=== PATIENT | male | born 1970 | race Caucasian/White ===

== ENCOUNTER 2021-10-05 11:27 | Emergency (ER) | payer SELFPAY ==
[2021-10-05] MEDS ORDERED: Sodium Chloride 0.9% 10 ML Syringe FLUSH PRN ×2 (12:03→12:05)
[2021-10-05] MEDS ORDERED: Iopamidol 612 MG/ML 100 ML Bottle IVPUSH ONE (12:05)
== END 2021-10-05 13:50 | disposition home or self-care (01) ==
LOC: JD.ED 11:27
DX: K57.32 Diverticulitis of large intestine without perforation or abscess without bleeding (principal)
CPT/HCPCS: 36415; 74177; 80053; 83690; 85025; 86140; 99284; J3490; Q9967

== ENCOUNTER 2022-12-31 18:43 | Emergency (ER) | payer BC ==
[2022-12-31 19:21] LABS: BASOPHILS ABSOLUTE AUTO 0.02 K/mm3 (0.01-0.08); BASOPHILS PERCENT AUTO 0.1 % (0.1-1.2); EOSINOPHILS ABSOLUTE AUTO 0.11 K/mm3 (0.04-0.54); EOSINOPHILS PERCENT AUTO 0.7 (0.8-7.0); HEMATOCRIT 46.4 % (40.1-51.0); HEMOGLOBIN 16.5 gm/dl (13.7-17.5); IMMATURE GRAN ABSOLUTE AUTO 0.06 K/mm3 (0.00-0.10); IMMATURE GRAN PERCENT AUTO 0.4 % (<=1.0); LYMPHOCYTES ABSOLUTE AUTO 2.37 K/mm3 (1.32-3.57); LYMPHOCYTES PERCENT AUTO 14.5 % (21.8-53.1); MEAN CORPUSCULAR HEMOGLOBIN 34.5 pg (25.7-32.2); MEAN CORPUSCULAR HGB CONC 35.6 g/dl (32.2-35.5); MEAN PLATELET VOLUME 9.2 fl (9.4-12.3); MONOCYTES ABSOLUTE AUTO 2.06 K/mm3 (0.30-0.82); MONOCYTES PERCENT AUTO 12.6 % (5.3-12.2); NEUTROPHILS ABSOLUTE AUTO 11.68 K/mm3 (1.78-5.38); NEUTROPHILS PERCENT AUTO 71.7 % (34.0-67.9); PLATELET COUNT,PLT 348 K/mm3 (163-337); RED BLOOD CELL COUNT 4.78 M/mm3 (4.63-6.08)
[2022-12-31 19:25] LABS: MEAN CORPUSCULAR VOLUME 97.1 fl (79.0-92.2)
[2022-12-31 19:34] LABS: BASE EXCESS ARTERIAL -1.3 (-2-2.0); BICARBONATE,ARTERIAL 21.4 meq/L (22.0-26.0); O2 SATURATION ARTERIAL 96.3 % (96.0-97.0); PCO2 ARTERIAL 32.3 mmHg (35.0-45.0)
[2022-12-31 19:40] LABS: INR 0.97; PROTHROMBIN TIME 10.4 SECONDS (9.7-12.0)
[2022-12-31 19:42] LABS: PTT,PARTIAL THROMBOPLSTIN TIME 25.2 SECONDS (21.7-31.4)
[2022-12-31 19:44] LABS: D-DIMER QUANTITATIVE < 0.19 mg/L (0.19-0.50)
[2022-12-31 19:58] LABS: ALANINE AMINOTRANSFERASE,ALT 44 U/L (16-63); ALKALINE PHOSPHATASE 57 U/L (46-116); ANION GAP 16.7 (5-15); ASPARTATE AMNIOTRANSFERASE,AST 23 U/L (15-37); BLOOD UREA NITROGEN,BUN 15 mg/dL (7-18); BUN/CREATININE RATIO 12.5 (14-18); CALCIUM 9.1 mg/dL (8.5-10.1); CARBON DIOXIDE,CO2 24 mEq/L (21-32); CHLORIDE,CL 100 mEq/L (98-107); CREATININE 1.2 mg/dL (0.7-1.3); EST CRCL DRUG DOSING (CG) 68.88 mL/min; ESTIMATED GFR 72 mL/min (>60); GLUCOSE RANDOM 135 mg/dL (70-99); MAGNESIUM 1.9 mg/dL (1.8-2.4); POTASSIUM,K 3.7 mEq/L (3.5-5.1); SODIUM,NA 137 mEq/L (136-145); TSH 2.161 uIU/mL (0.358-3.74)
[2022-12-31 20:00] LABS: TROPONIN I HIGH SENSITIVITY < 4 pg/mL (<=76)
== END 2022-12-31 21:00 | disposition home or self-care (01) ==
LOC: JD.ED 18:43
DX: F41.9 Anxiety disorder, unspecified (principal); I10 Essential (primary) hypertension; Z87.891 Personal history of nicotine dependence
CPT/HCPCS: 36415; 36600; 71046; 71046-26; 80053; 82803; 82947; 83735; 84443; 84484; 85025; 85379; 85610; 85730; 93005; 99284